=== PATIENT | male | born 1975 | race Caucasian/White ===

== ENCOUNTER → 2019-03-04 | Outpatient (CLI) | payer BC ==
--- NOTE | 2019-03-04 14:27 | XR ---
KUB HISTORY: Kidney stone Frontal KUB and 2 images No comparisons Bone mineralization is normal. Oval calcification is present overlying the region just distal to the sacroiliac joint on the left measuring 8 x 5 mm. No bowel obstruction or pneumoperitoneum. Probable v ascular calcifications are present within the pelvis. IMPRESSION: Difficult to exclude a distal ureteral calculus
== END | disposition home or self-care (01) ==
LOC: RADXRMAIN 11:09
PROVIDERS: ATTEND Family Medicine
DX: N20.0 Calculus of kidney (principal); E11.40 Type 2 diabetes mellitus with diabetic neuropathy, unspecified; Z00.00 Encounter for general adult medical examination without abnormal findings
CPT/HCPCS: 74018

== ENCOUNTER 2019-04-10 01:39 | Emergency (ER) | payer BC ==
[2019-04-10] MEDS ORDERED: GLUCAGON 1 MG/ML VIAL IVP STA ×2 (02:16→04:42)
[2019-04-10] MEDS ORDERED: SODIUM CHLORIDE 0.9% 500 ML 500 ML IV STA (04:42)
[2019-04-10 05:19] LABS: Basophils # (A) 0.2 k/uL (0-0.2); Basophils % (A) 1 %; Eosinophils # (A) 0.4 k/uL (0-0.7); Eosinophils % (A) 3 %; HCT 49.7 % (39.0-53.0); HGB 16.3 gm/dL (13.0-17.5); Lymphocytes # (A) 3.1 k/uL (1.0-4.8); Lymphocytes % (A) 29 %; MCH 26.4 pg (25.0-35.0); MCHC 32.8 g/dL (31.0-37.0); MCV 80.5 fL (80.0-100.0); Mean Platelet Volume 7.9; Monocytes # (A) 0.7 k/uL (0-1.0); Monocytes % (A) 6 %; Neutrophils % (A) 57 %; Platelet Count 235 k/uL (150-450); RBC 6.17 m/uL (4.30-5.90); RDW 13.6 % (11.5-15.5); WBC 10.4 k/uL (3.8-10.6)
[2019-04-10 05:27] LABS: Partial Thromboplastin Time 25.3 sec (22.0-30.0); Prothrombin Time 10.3 sec (9.0-12.0)
[2019-04-10 05:31] LABS: African American GFR (CKD) >90 (>60 ml/min/1.73 sqM); Anion Gap 13 mmol/L; Blood Urea Nitrogen 13 mg/dL (9-20); Calcium 9.4 mg/dL (8.4-10.2); Carbon Dioxide 24 mmol/L (22-30); Chloride 103 mmol/L (98-107); Glucose 91 mg/dL (74-99); Non-African American GFR(CKD) >90 (>60 ml/min/1.73 sqM); Sodium 140 mmol/L (137-145)
--- NOTE | 2019-04-10 06:20 | ED ---
General Adult HPI - General Source: patient Mode of arrival: ambulatory - History of Present Illness -: hour(s) Location: chest Radiation: non-radiation Quality: dull Consistency: constant Improves with: none Worsens with: none Associated Symptoms: denies other symptoms Treatments Prior to Arrival: none <Ac Kaufman - Last Filed: 04/10/19 06:16> <Fran Shipman - Last Filed: 04/10/19 08:12> - General Chief complaint: ENT Stated complaint: Poss Food stuck in throat Time Seen by Provider: 04/10/19 01:43 - History of Present Illness Initial comments: This patient is a 43-year-old man who presents to be evaluated for what he suspects is a food impaction. The patient states that he had been eating pork chop last night. He felt as if a piece of that lodged in his throat. He indicates the area around the sternal notch. He states he does have some discomfort but not really any tran pain. He has tried taking fluids but does regurgitate them. He is not having any dyspnea. Patient states he has had this happen briefly in the past but not one that lasted for hours like this. No previous endoscopy. (Ac Kaufman) - Related Data Allergies Allergy/AdvReac Type Severity Reaction Status Date / Time No Known Allergies Allergy Verified 04/10/19 01:53 Review of Systems ROS Other: All systems not noted in ROS Statement are negative. Constitutional: Denies: fever, chills ENT: Reports: as per HPI, throat pain Respiratory: Denies: cough, dyspnea Cardiovascular: Denies: chest pain, palpitations Gastrointestinal: Denies: abdominal pain, nausea, vomiting Musculoskeletal: Denies: back pain Neurological: Denies: headache <Ac Kaufman - Last Filed: 04/10/19 06:16> ROS Other: All systems not noted in ROS Statement are negative. <Fran Shipman - Last Filed: 04/10/19 08:12> ROS Statement: Those systems with pertinent positive or pertinent negative responses have been documented in the HPI. Past Medical History Past Medical History: Diabetes Mellitus History of Any Multi-Drug Resistant Organisms: None Reported Past Psychological History: No Psychological Hx Reported Smoking Status: Never smoker Past Alcohol Use History: Occasional Past Drug Use History: None Reported <Ac Kaufman - Last Filed: 04/10/19 06:16> General Exam General appearance: alert, in no apparent distress Head exam: Present: atraumatic, normocephalic Eye exam: Present: normal appearance. Absent: scleral icterus, conjunctival injection ENT exam: Present: normal oropharynx Respiratory exam: Present: normal lung sounds bilaterally. Absent: respiratory distress, wheezes, rales, rhonchi, stridor Cardiovascular Exam: Present: regular rate, normal rhythm, normal heart sounds. Absent: systolic murmur, diastolic murmur, rubs, gallop GI/Abdominal exam: Present: soft. Absent: tenderness Neurological exam: Present: alert Skin exam: Present: warm, dry, intact, normal color. Absent: rash <Ac Kaufman - Last Filed: 04/10/19 06:16> Course Vital Signs 04/10/19 04/10/19 01:42 06:53 Temperature 97.9 F Pulse Rate 85 77 Respiratory 23 18 Rate Blood Pressure 164/105 131/93 O2 Sat by Pulse 100 98 Oximetry Medical Decision Making - Lab Data Result diagrams: 04/10/19 04:50 04/10/19 04:50 <Ac Kaufman - Last Filed: 04/10/19 06:16> - Lab Data Result diagrams: 04/10/19 04:50 04/10/19 04:50 <Fran Shipman - Last Filed: 04/10/19 08:12> - Medical Decision Making Patient is a 43-year-old man presenting with esophageal food impaction. The patient is not having any dyspnea or airway compromise. We did attempt glucagon with no success. I did page Dr. Cabrera, who stated that she would be able to see the patient soon as the OR team was available at 6:30 AM. The patient was declining analgesia or other medication. He did continue to have impaction and was not able to tolerate drinking any fluids without regurgitation. (Ac Kaufman) Patient endorsed to me for discharge following endoscopy. Patient reevaluated and feeling much better at this time. Patient is symptom-free. Patient updated on need for follow-up. 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 (Fran Shipman) - Lab Data Lab Results 04/10/19 04/10/19 04/10/19 Range/Units 04:50 04:50 04:50 WBC 10.4 (3.8-10.6) k/uL RBC 6.17 H (4.30-5.90) m/uL Hgb 16.3 (13.0-17.5) gm/dL Hct 49.7 (39.0-53.0) % MCV 80.5 (80.0-100.0) fL MCH 26.4 (25.0-35.0) pg MCHC 32.8 (31.0-37.0) g/dL RDW 13.6 (11.5-15.5) % Plt Count 235 (150-450) k/uL Neutrophils % 57 % Lymphocytes % 29 % Monocytes % 6 % Eosinophils % 3 % Basophils % 1 % Neutrophils # 6.0 (1.3-7.7) k/uL Lymphocytes # 3.1 (1.0-4.8) k/uL Monocytes # 0.7 (0-1.0) k/uL Eosinophils # 0.4 (0-0.7) k/uL Basophils # 0.2 (0-0.2) k/uL PT 10.3 (9.0-12.0) sec INR 1.0 (<1.2) APTT 25.3 (22.0-30.0) sec Sodium 140 (137-145) mmol/L Potassium 4.0 (3.5-5.1) mmol/L Chloride 103 (98-107) mmol/L Carbon Dioxide 24 (22-30) mmol/L Anion Gap 13 mmol/L BUN 13 (9-20) mg/dL Creatinine 0.84 (0.66-1.25) mg/dL Est GFR (CKD-EPI)AfAm >90 (>60 ml/min/1.73 sqM) Est GFR (CKD-EPI)NonAf >90 (>60 ml/min/1.73 sqM) Glucose 91 (74-99) mg/dL Calcium 9.4 (8.4-10.2) mg/dL Disposition <Ac Kaufman - Last Filed: 04/10/19 06:16> Is patient prescribed a controlled substance at d/c from ED?: No Time of Disposition: 08:12 <Fran Shipman - Last Filed: 04/10/19 08:12> Clinical Impression: Food impaction of esophagus Disposition: HOME SELF-CARE Condition: Stable Instructions (If sedation given, give patient instructions): Esophageal Foreign Body (ED) Additional Instructions: Liquid diet for the next 24 hours, soft foods for the next 24 hours following this. Please follow-up with gastroenterology in the next several days as directed. Return for pain, difficulty swallowing or breathing, worsening symptoms or any other concerns. Referrals: Luis Angel Manrique MD [Primary Care Provider] - 1-2 days Sylvie Cabrera MD [STAFF PHYSICIAN] - 1-2 days
[2019-04-10 06:54] VITALS: RESP 18
[2019-04-10] MEDS ORDERED: fentaNYL (PF) 50 MCG/ML 2 ML AMP ONE (07:10)
[2019-04-10] MEDS ORDERED: MIDAZOLAM 2 MG/2 ML VIAL ONE (07:10)
[2019-04-10] MEDS ORDERED: PROPOFOL 10 MG/ML 20 ML VIAL IV ONE (07:10)
[2019-04-10] MEDS ORDERED: LIDOCAINE 1% INJ 10MG/ML (20 ML MDV) ONE (07:10)
[2019-04-10] MEDS ORDERED: IV FLUID CONTINUATION 1,000 ML IV ONE (07:17)
--- NOTE | 2019-04-10 08:21 | P.PCN ---
Date of Procedure: 04/10/19 Procedure(s) Performed: BRIEF HISTORY: Patient is a 43-year-old, pleasant, male, came into the emergency room late last night with acute food impaction. His been having intermittent dysphagia for the last 20 years duration. No history of gastroesophageal reflux disease. PROCEDURE PERFORMED: Esophagogastroduodenoscopy With foreign body retrieval and biopsy PREOPERATIVE DIAGNOSIS: Acute food impaction IV sedation per anesthesia. PROCEDURE: After informed consent was obtained, the patient was brought into the endoscopy unit. IV sedation was administered by Anesthesia under continuous monitoring. Initially the Olympus GIF-140 video endoscope was inserted into the mouth. Esophagus intubated without any difficulty. It was gradually advanced into the mid esophagus and there was a large piece of meat that was impacted. Using a snare and a tripod as able to retrieve the food bolus which was pulled out of the esophagus. The esophagus at this time was intubated without any difficulty and was gently advanced into thestomach and duodenum and carefully examined. The bulb and the second part of the duodenum appeared normal. The scope at this time was withdrawn to the stomach, adequately insufflated with air, and upon careful examination, mucosa of the antrum, body, cardia and the fundus appeared normal. The scope was then withdrawn into the esophagus. The GE junction was located at 39 cm from the incisors. The entire length of esophagus had thickened mucosal folds with longitudinal ridges and furrows and mid/distal esophageal strictures consistent with eosinophilic esophagitis and multiple biopsies were done from this area. The proximal cervical esophagus appeared normal and the patient tolerated the procedure well. IMPRESSION: 1. Large piece of meat lodged in the mid esophagus status post removal as described above 2. Thickened esophageal folds with mid/distal esophageal early stricture status post multiple biopsies to rule out years of age esophagitis. RECOMMENDATIONS: The findings of this examination were discussed with the patient. as well as some his family. He was advised to follow with the biopsy results. He will remain on a clear liquid diet until lunch today. He was also advised to start Prilosec 20 mg twice daily half hour before breakfast and dinne rtime and follow antireflux measures. He will be seen in office in 2 weeks.
--- NOTE | 2019-04-10 08:30 | CONS ---
CONSULTATION DATE OF DICTATION: April 10, 2019 REASON FOR CONSULTATION: Acute food dysphagia. HISTORY OF PRESENT ILLNESS: Patient is a 43-year-old pleasant white male who came into the emergency room late last night or early this morning complaining of acute food dysphagia. He ate a piece of pork chop for dinner and could not swallow any further. He has been having intermittent dysphagia to solids for the last 20 years duration, but has never been this intense. He usually takes a sip of water and symptoms resolve, but he tried retching and trying to take sips of water with no help and came into the emergency room and we are consulted for possible EGD on an emergency basis. He still feels the food is stuck in the midsternal area. He denies any abdominal pain. Reports no nausea or vomiting. He is not able to handle his secretions. PAST MEDICAL HISTORY: Diabetes mellitus. PAST SURGICAL HISTORY: None. MEDICATIONS: Medications at home include diabetic medication. ALLERGIES: No known drug allergies. SOCIAL HISTORY: No smoking or alcohol. FAMILY HISTORY: Unremarkable. REVIEW OF SYSTEMS: CARDIOPULMONARY: No chest pain or shortness of breath. GENITOURINARY: No dysuria or hematuria. MUSCULOSKELETAL: Unremarkable. SKIN: Unremarkable. ENDOCRINE: Unremarkable. PSYCHIATRIC: Unremarkable. NEUROLOGY: Unremarkable. ENT/VISION: Unremarkable. CONSTITUTIONAL: No recent weight loss. No fever, chills or night sweats. PHYSICAL EXAMINATION: He appears comfortable, in no apparent distress. Vital signs are stable. Blood pressure is 133/86, pulse rate 77, temperature 97.9. HEENT: Examination unremarkable. Conjunctivae pink. Sclerae anicteric. Oral cavity no lesions. NECK: No JVD or lymph node enlargement. CHEST: Clear to auscultation. HEART: Regular rate and rhythm. ABDOMEN: Soft. Bowel sounds are positive. No organomegaly. EXTREMITIES: No pedal edema. SKIN: No rashes. NEUROLOGIC: Alert and oriented x3. No focal deficits. LABS: WBC 10.4, hemoglobin 16.3, platelets are normal. Basic metabolic panel is within normal limits. PT/INR is normal. IMPRESSION: 1. Acute food impaction in this patient who has been having intermittent dysphagia to solids for the last 20 years duration. No history of gastroesophageal reflux disease. 2. History of diabetes mellitus. RECOMMENDATIONS: We will proceed with an upper endoscopy with foreign body retrieval in the emergency room. I discussed with the patient, risks, benefits and complications of the procedure. He is agreeable to it. Thank you for this consult. EVELIAL / IJN: [id number] /
[2019-04-10 08:59] VITALS: BP 132/99; PULSE 76; TEMP 97.8
== END 2019-04-10 08:57 | disposition home or self-care (01) ==
LOC: EC 01:39
DX: T18.128A Food in esophagus causing other injury, initial encounter (principal); E11.9 Type 2 diabetes mellitus without complications; Z79.84 Long term (current) use of oral hypoglycemic drugs
CPT/HCPCS: 36415; 80048; 85025; 85610; 85730; 43239; 43247; 99284; 96374; 96376; 96361; J1610; 88305

== ENCOUNTER → 2020-09-13 | Outpatient (CLI) | payer BC ==
--- NOTE | 2020-09-14 13:39 | P.ARTDOP ---
Arterial Doppler LOWER EXTREMITY ARTERIAL DOPPLER: DATE OF SERVICE: 09/13/2020 Reason for study: Diabetic ulcer right foot, previously. Doppler waveforms: Multiphasic throughout bilaterally. Pulse volume recording: []. Pressure gradients: None. Ankle-brachial indices: Greater than 1 bilaterally. Toe brachial indices: 0.96 on the right, 0.77 on the left Impression: Normal study.
== END | disposition home or self-care (01) ==
LOC: RADUSWWP 09:46
PROVIDERS: ATTEND Family Medicine
DX: E11.621 Type 2 diabetes mellitus with foot ulcer (principal); L97.519 Non-pressure chronic ulcer of other part of right foot with unspecified severity
CPT/HCPCS: 93922

== ENCOUNTER → 2022-04-11 | Outpatient (CLI) | payer OTHER ==
[2022-04-11 10:49] LABS: Basophils # (A) 0.04 X 10*3/uL (0.00-0.10); Basophils % (A) 0.5 %; Eosinophils # (A) 0.28 X 10*3/uL (0.04-0.35); Eosinophils % (A) 3.6 %; HCT 48.5 % (39.6-50.0); HGB 15.4 g/dL (13.0-17.0); Immature Grans, Automated 0.1 %; Lymphocytes # (A) 2.17 X 10*3/uL (0.90-5.00); Lymphocytes % (A) 28.1 %; MCH 26.2 pg (27.0-32.0); MCHC 31.8 g/dL (32.0-37.0); MCV 82.5 fL (80.0-97.0); Mean Platelet Volume 9.4 fL (9.5-12.2); Monocytes % (A) 10.3 %; NRBC Per 100 WBC 0 /100 WBCS (0.0-0.0); Neutrophils # (A) 4.43 X 10*3/uL (1.80-7.70); Neutrophils % (A) 57.4 %; Platelet Count 231 X 10*3/uL (140-440); RBC 5.88 X 10*6/uL (4.40-5.60); RDW 13.8 % (11.5-14.5); WBC 7.73 X 10*3/uL (4.50-10.00)
[2022-04-11 11:04] LABS: ALT 54 U/L (10-49); AST 42 U/L (14-35); African American GFR (CKD) 108.5 (60.0-200.0); Albumin 4.5 g/dL (3.8-4.9); Albumin/Globulin Ratio 1.58 (1.60-3.17); Alkaline Phosphatase 83 U/L (41-126); BUN/Creat Ratio 11.25 Ratio (12.00-20.00); Calcium 9.5 mg/dL (8.7-10.3); Carbon Dioxide 28.1 mmol/L (20.0-27.5); Chloride 100 mmol/L (96-109); Chol/HDL Ratio 4.72 Ratio; Globulin 2.9 g/dL (1.6-3.3); Glucose 134 mg/dL (70-110); LDL Cholesterol,Calculated 39.4 mg/dL (0.0-131.0); Non-African American GFR(CKD) 93.6 (60.0-200.0); Potassium 4.2 mmol/L (3.5-5.5); Sodium 140 mmol/L (135-145); Total Protein 7.4 g/dL (6.2-8.2)
== END | disposition home or self-care (01) ==
LOC: LABWHC1 07:56
PROVIDERS: ATTEND Family Medicine
DX: Z12.5 Encounter for screening for malignant neoplasm of prostate (principal); E11.40 Type 2 diabetes mellitus with diabetic neuropathy, unspecified; E78.2 Mixed hyperlipidemia
CPT/HCPCS: 80061; 80053; 84443; 85025; 36415; G0103

== ENCOUNTER → 2023-10-25 | Outpatient (CLI) | payer OTHER | END | disposition home or self-care (01) | LOC: LABPRL 14:31 | PROVIDERS: ATTEND Family Medicine | DX: E11.69 Type 2 diabetes mellitus with other specified complication (principal) | CPT/HCPCS: 80053; 82043; 82570 ==

== ENCOUNTER → 2024-06-26 | Outpatient (CLI) | payer OTHER ==
--- NOTE | 2024-06-26 13:53 | CA ---
Exercise Nuclear Stress Test Report Name: Javon Shepherd Exam Date: 06/26/2024 10:47 Exam Location: [facility] Ht (in): 75 Wt (lb): 295 BSA: 2.59 Ordering Phys: Luis Angel Manrique MD Referring Phys: ARUNA Technologist: JARETT MARS Age: 49 Gender: M : 1975 Procedure CPT: Indications: R07.9 CP Z82.49 FM HX AAA ICD-10 Codes: Patient History: Medications: Meds past 24 hrs: Pretest Chest Pain: STRESS TEST Chris Protocol Exercise Duration (min:sec): 07:[address] Depressions (mm): Angina Score: Felix Score: Resting HR (bpm): 100 Peak HR (bpm): 165 Resting BP (mmHg): 123 / 83 Peak BP (mmHg): 192 / 78 MPHR: 173 Target HR: 147 % MPHR: 95 METS: 10.3 Total Dose: Peak Dose: Atropine: Double Product: 14395 BP Response: Stress Termination: TARGET HR REACHED/MAX EXERTION Stress Symptoms: NO SYMPTOMS Stress Summary: ECG ANALYSIS Resting ECG: Stress ECG: CONCLUSIONS Good exercise tolerance Normal electrocardiogram stress testing Dr. Talat Rivera MD (Electronically Signed) Final Date: 26 June 2024 13:52
--- NOTE | 2024-06-26 22:26 | NM ---
EXAMINATION TYPE: NM stress cardiolite complete DATE OF EXAM: 06/26/2024 COMPARISON: NONE CLINICAL INDICATION: Male, 49 years old with history of R07.9 CP Z82.49 FM HX AAA, TECHNIQUE: After the intravenous administration of 9.49 mCi Tc 99m Sestamibi - Cardiolite resting SP ECT images acquired 45 minutes post injection. At peak stress 25.2 mCi Tc 99m Sestamibi - Stress images obtained 30 minutes post injection The patient was stressed with 0.4mg Lexiscan. FINDINGS: No fixed defects are evident. No reversible stress defects on Spect images. Wall motion is normal. Ejection fraction is calculated to be 70 %. IMPRESSION: 1. No stress-induced ischemic change [facility], , 06/26/2024 10:24 PM
== END | disposition home or self-care (01) ==
LOC: RADNMMAIN 06-18 10:21
PROVIDERS: ATTEND Family Medicine
DX: R07.9 Chest pain, unspecified (principal); Z82.49 Family history of ischemic heart disease and other diseases of the circulatory system
CPT/HCPCS: 93017; 78452; A9500

== ENCOUNTER → 2024-07-21 | Outpatient (CLI) | payer OTHER ==
--- NOTE | 2024-07-22 10:04 | CA ---
Transthoracic Echo Report Name: Javon Shepehrd Age: 49 Gender: M : 1975 Exam Date: 07/21/2024 14:55 Exam Location: [facility] Ht (in): 75 Wt (lb): 290 Ordering Physician: Luis Angel Manrique MD Attending/Referring Phys: Luis Angel Manrique MD [employer] [place], [facility] Procedure CPT: Indications: R07.9 CHEST PAIN, UNSPECIFIED Cardiac Hx: Technical Quality: Fair Contrast 1: Total Dose (mL): Contrast 2: Total Dose (mL): MEASUREMENTS (Male / Female) Normal Values 2D ECHO LV Diastolic Diameter PLAX 4.9 cm 4.2 - 5.9 / 3.9 - 5.3 cm LV Systolic Diameter PLAX 3.0 cm IVS Diastolic Thickness 1.3 cm 0.6 - 1.0 / 0.6 - 0.9 cm LVPW Diastolic Thickness 1.3 cm 0.6 - 1.0 / 0.6 - 0.9 cm LV Relative Wall Thickness 0.5 RV Internal Dim ED PLAX 2.9 cm LVOT Diameter 1.8 cm LA Systolic Diameter LX 3.7 cm 3.0 - 4.0 / 2.7 - 3.8 cm LA Volume 62.8 cm??? 18 - 58 / 22 - 52 cm??? LA Volume Index 23.4 cm???/m??? 16 - 28 cm???/m??? DOPPLER MV Area PHT 3.4 cm??? Mitral E Point Velocity 65.9 cm/s Mitral A Point Velocity 74.6 cm/s Mitral E to A Ratio 0.9 MV Deceleration Time 223.4 ms Right Atrial Pressure 10.0 mmHg FINDINGS Left Ventricle Left ventricular ejection fraction is estimated at 55-60%. Mildly increased septal wall thickness. Normal left ventricular systolic function with no obvious regional wall motion abnormalities. Right Ventricle Normal right ventricular size and function. Right ventricular systolic pressure within normal limits. Right Atrium Normal right atrial size. Left Atrium Mildly increased left atrial volume. Mitral Valve Structurally normal mitral valve. No mitral stenosis. Trace mitral regurgitation. Aortic Valve Trileaflet aortic valve. No aortic stenosis. No aortic regurgitation. Tricuspid Valve Structurally normal tricuspid valve. No tricuspid stenosis. Trace tricuspid regurgitation. Pulmonic Valve Pulmonic valve not well visualized. No pulmonic stenosis. No pulmonic regurgitation. Pericardium No pericardial effusion. Aorta Normal size aortic root and proximal ascending aorta. CONCLUSIONS Normal LV size and systolic function. Mild mitral and tricuspid regurgitation. No pulmonary hypertension. No pericardial effusion Previewed by: Dr. Brennan Keen MD (Electronically Signed) Final Date: 22 Jul 2024 10:04
== END | disposition home or self-care (01) ==
LOC: RADECHMAIN 14:51
PROVIDERS: ATTEND Family Medicine
DX: I08.1 Rheumatic disorders of both mitral and tricuspid valves (principal)
CPT/HCPCS: 93306